=== PATIENT | male | born 1945 | race Caucasian/White ===

== ENCOUNTER 2019-03-21 09:09 | Inpatient (IN) ==
--- NOTE | 2019-03-13 14:34 | Anesthesiology Consultation ---
Date of Service March 13, 2019 Assessment & Plan Chart Review Chart Review: Patient NOT seen in Pre Admission Testing Consults Requested medical ASA ASA4 Proposed Anesthesia Anesthesia Type: General Anesthesia Line Insertion: Arterial line History Surgery Operation Date: 03/21/19 12:15 Proposed Procedures p Endobronchial Ultrasound - Parveen Schmidt MD, FACS s and Navigational Bronchoscopy with Biopsies - Parveen Schmidt MD, FACS Height/Weight Height: 5 ft 7 in Weight: 81.647 kg Allergies Allergy/AdvReac Type Severity Reaction Status Date / Time No Known Allergies Allergy Verified 03/13/19 10:08 Medications Home Medications Medication Instructions Recorded Confirmed Last Taken omeprazole 20 mg capsule,delayed 20 mg PO QAM #90 cap 11/29/18 03/13/19 Unknown release lovastatin 20 mg PO QAM 01/04/19 03/13/19 Unknown cholecalciferol (vitamin D3) 5,000 5,000 units PO DAILY 01/14/19 03/13/19 Unknown unit capsule multivitamin,so-fobt-shiefcnq 1 tab PO QAM 01/14/19 03/13/19 Unknown tablet inhalational spacing device #1 ea 01/28/19 03/11/19 Unknown aspirin 81 mg tablet,delayed 81 mg PO QAM 03/11/19 03/13/19 Unknown release lisinopril 20 mg tablet 20 mg PO QAM 03/11/19 03/13/19 Unknown metoprolol succinate ER 100 mg 100 mg PO QAM tab 03/11/19 03/13/19 Unknown tablet,extended release 24 hr albuterol sulfate [Ventolin HFA] 2 puff INHALATION QID PRN 03/13/19 03/13/19 Unknown tiotropium bromide [Spiriva with 1 cap INHALATION DAILY 03/13/19 03/13/19 Unknown HandiHaler] Past Medical History Medical History Chronic obstructive pulmonary disease Colon polyp Compression fracture of T11 vertebra fall January 2019. GERD (gastroesophageal reflux disease) Hyperlipidemia Osteoarthritis Pneumonia hx Cancer of the skin, basal cell Hypertension Metastatic cancer to lung Exercise / Class Metabolic Activity III < 4 Walking/Shop/Light housework Past Family History Family History Father Myocardial infarction Heart disease Brother Heart disease Other Cancer Past Surgical History Surgical History History of bronchoscopy History of colonoscopy History of esophagogastroduodenoscopy (EGD) History of surgical removal of skin lesion with skin graft History of appendectomy History of hemicolectomy right History of lung surgery thorascopic right lobectomy (middle area) History of tonsillectomy Past Anesthesia History No Hx of Anesthesia Complications and No Family Hx of Anesthesia Complications History of PONV No Hx of PONV and No Hx of Motion Sickness Social History Smoking Status: Former smoker tobacco type: cigarettes Smoking cigarettes per day: 1 ppd x 40 years Do You Dip or Chew Tobacco: No Smoking End Date: 1998 Hx Alcohol Use: Yes Alcohol type: wine and hard liquor alcohol intake frequency: 0-2 drinks per day Hx Substance Use: No substance use type: does not use Testing Laboratory Results WBC: 9.55 Hc.4 Hct: 48.3 PLATELETS: 262 SODIUM: 140 POTASSIUM: 4.1 CHLORIDE: 105 CO2: 29 BUN: 11 CREATININE: 1.01 GLUCOSE: 99 PT: 10.5 PTT: 29.2 INR: 1.0 UA: TYPE AND SCREEN: Electrocardiogram Date: 01/04/19 Findings: + RBBB and + pertinent finding (SR w/ 1st degree AV block;RBBB) Other Testing Chest CT scan(02/24/2019-mild cardiomegaly;densely calcified coronary arteries;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 to severe T11 compression Fx;masslike spiculated pulmonary opacities;cirrhotic liver morphology
[~2019-03-21 09:09] MED LIST: LR 15ML/HR IV SCH
[2019-03-21] MEDS ORDERED: ONDANSETRON INJ 2 MG/ML 2 ML VIAL ONE (09:44)
[2019-03-21] MEDS ORDERED: ROCURONIUM BROMIDE 10 MG/ML 5 ML VIAL ONE (09:44)
[2019-03-21] MEDS ORDERED: fentaNYL citrate 100 MCG/2 ML VIAL ONE (09:44)
[2019-03-21] MEDS ORDERED: LIDOCAINE 2% 2 ML VIAL/AMP(20MG/ML) INFIL ONE (09:44)
[2019-03-21] MEDS ORDERED: PROPOFOL IV EMULSION 10 MG/ML 20 ML VIAL IV ONE (09:44)
[2019-03-21] MEDS ORDERED: MIDAZOLAM HCL 1 MG/ML 2ML VIAL ONE (09:44)
[2019-03-21] MEDS ORDERED: ATROPINE SULFATE 0.1 MG/ML 10ML SYR IV PRN (10:14)
[2019-03-21] MEDS ORDERED: ePHEDrine sulfate 50 MG/ML AMP IV PRN (10:14)
[2019-03-21] MEDS ORDERED: fentaNYL citrate 100 MCG/2 ML VIAL IV PRN (10:14)
[2019-03-21] MEDS ORDERED: ONDANSETRON INJ 2 MG/ML 2 ML VIAL IV PRN ×2 (10:14→15:40)
[2019-03-21] MEDS ORDERED: hydrALAZINE HCL 20 MG/ML VIAL IV STA (10:14)
[2019-03-21] MEDS ORDERED: THROMBIN FOR SOLN 20000 UNIT KIT ONE (11:19)
--- NOTE | 2019-03-21 11:28 | History & Physical Bridge Note ---
Date of Service March 21, 2019 History & Physical Bridge Note I have examined the patient, reviewed the History & Physical and in the interval since the performance of the History & Physical I have noted the following changes of clinical significance: no changes noted
[2019-03-21] MEDS ORDERED: CLINDAMYCIN PHOS 300 MG/2 ML VIAL ONE (11:57)
[2019-03-21] MEDS ORDERED: CLINDAMYCIN 900 MG in DEXTROSE 5% 100 ML IV ONE (12:18)
[2019-03-21] MEDS ORDERED: ePHEDrine sulfate 50 MG/ML AMP ONE (12:30)
--- NOTE | 2019-03-21 12:54 | Post Operative Brief Note ---
PG Immediate Post Op with CF Date of Surgery March 21, 2019 Pre & Post Diagnosis Operation Date: 03/21/19 10:35 Pre-Op Diagnosis: Lung Nodule, Mediastinal Adenopathy Post-op Diagnosis: Same I identified the patient and participated in the time-out.: Yes Procedure Operation Date: 03/21/19 10:35 Actual Procedures p Endobronchial Ultrasound(Not Applicable) - Parveen Schmidt MD, FACS s and Navigational Bronchoscopy with Biopsies(Not Applicable) - Parveen Schmidt MD, FACS Surgeon Parveen Schmidt MD, FACS Clinical Registered Nurse Areli Campos RESIDENTIAL MANAGER Estimated Blood Loss 15 Findings Consistent with Post-Op Diagnosis Specimens Specimen Description: all specimens handled by respiratory and cytology
[2019-03-21] MEDS ORDERED: SUGAMMADEX SODIUM 200 MG/2 ML VIAL IV ONE (13:01)
--- NOTE | 2019-03-21 13:27 | XRay Report ---
XR chest 1V portable CLINICAL HISTORY: s/p EBUS COMPARISON STUDY: No previous studies for comparison. FINDINGS: No evidence for pneumothorax postprocedure. Unchanged hilar fullness bilaterally. Unchanged basilar atelectatic change. IMPRESSION: No evidence for pneumothorax. The above report was generated using voice recognition software. It may contain grammatical, syntax or spelling errors. Electronically signed by: Jossue Sainz M.D. 03/21/2019 1:25 PM
[2019-03-21] MEDS ORDERED: ALBUT/IPRATROP 3MG/0.5MG NEB 3 ML VIAL NEB STA (13:28)
--- NOTE | 2019-03-21 13:41 | Fluoroscopy Report ---
FL chest 1V frontal CLINICAL HISTORY: JAREK BRONCHbronchoscopy COMPARISON STUDY: None FLUOROSCOPY TIME: 2 minutes 16 seconds NUMBER OF FLUOROSCOPIC IMAGES: 2 FINDINGS: Image intensifier support for navigational bronchoscopy IMPRESSION: Image intensifier support for navigational bronchoscopy. The above report was generated using voice recognition software. It may contain grammatical, syntax or spelling errors. Electronically signed by: Jossue Sainz M.D. 03/21/2019 1:40 PM
--- NOTE | 2019-03-21 13:47 | Anesthesiology Progress Note ---
Date of Service March 21, 2019 Anesthesia Post Procedure Vital Signs Vital Signs: Temp Pulse Pulse Resp BP Pulse Ox 03/21/19 13:40 84 24 180/81 H 94 03/21/19 13:30 87 25 H 176/89 H 99 03/21/19 13:26 84 20 99 03/21/19 13:20 83 23 168/82 H 99 03/21/19 13:12 36.6 C 79 18 181/88 H 97 03/21/19 09:41 36.6 C 69 21 210/92 H 92 Transfer of Care Handoff Completed per policy Notes Mental Status: alert / awake / arousable and participated in evaluation Patient Amnestic to Procedure: Yes Nausea / Vomiting: adequately controlled Pain: adequately controlled Airway Patency, RR, SpO2: stable & adequate BP & HR: stable & adequate Hydration State: stable & adequate Anesthetic Complications: no major complications apparent and Pt Satisfied with anesthetic care
--- NOTE | 2019-03-21 14:01 | Operative Report (OR) ---
DATE OF OPERATION: 03/21/2019 PREOPERATIVE DIAGNOSES: Bilateral lower extremity masses with bronchial thickening of the bronchus intermedius and right mainstem bronchus. POSTOPERATIVE DIAGNOSES: Bilateral lower extremity masses with bronchial thickening of the bronchus intermedius and right mainstem bronchus. PROCEDURE: 1. Endobronchial ultrasound with biopsy. 2. Navigational bronchoscopy with biopsy. ANESTHESIA: General anesthesia with endotracheal intubation. SURGEON: Parveen Schmidt MD. REWINDER: Adilene Oneil, registered respiratory therapist. ANESTHESIA: General anesthesia, endotracheal intubation. INDICATION FOR PROCEDURE AND FINDINGS: Mr. Braden is a very interesting 74-year-old male who has a history of basal cell carcinoma which was resected from his forehead many years ago. He was then found to have metastases to his lungs were diagnosed via a wedge resection via right thoracotomy. This was many years ago. His original excision was done more than 15 years ago. The patient has been evaluated and there are agents to use for metastatic basal cell carcinoma; however, Dr. Flavio Lugo from medical oncology as a tissue diagnosis will be obtained before giving him his medication. He really has no signs or symptoms of pulmonary metastases. On 03/21/2019, the patient was brought to the operating room and underwent uncomplicated endobronchial ultrasound. His airway was quite thickened, especially on the right side. This was the right distal mainstem bronchus and the bronchus intermedius. It was hard and white. I did biopsy this with the needles and forceps. During the endobronchial ultrasound, I really saw very little in the way of lymphadenopathy. I did biopsy a left level 11 node but really it was small. I really saw nothing in the subcarinal area. On CT, he had a level 4 node anteriorly that appeared to be less than a centimeter, but I really did not visualize this well and I think some of it may have been due to the distal trachea. At any rate, I elected not to proceed further with this. I then did a navigational bronchoscopy and got into the left lower lobe mass as well as the right lower lobe mass. I was aggressive with the biopsies. We had very little in the way of bleeding. He tolerated it well. DESCRIPTION OF PROCEDURE: The patient brought to the operating room and laid in supine position. General anesthesia induced and endotracheal intubation was performed with single lumen tube. After appropriate antibiotics had been given and a timeout called, the ultrasound scope was inserted through the adapter into the endotracheal tube. Upon coming down, I closely inspected both level 11 areas, both level 10 areas, both level 4 areas, level 7 area and I really saw very little in the way of any adenopathy. I did biopsy a left level 11 a couple of times with a needle under ultrasound guidance, but we saw very little in the rapid onsite evaluation. I then switched over to the regular fiberoptic scope and going down, I closely inspected all the airways. His entire airway from the distal trachea on out was abnormal in appearance. It appeared to be inflamed and edematous. It was fairly friable with bleeding from the surface. I did do a biopsy of right mainstem bronchus mucosa with a forceps. I also biopsied the 2nd generation bronchoscopy ivan on the right. We did this with forceps with hard white tissue pulled. I also did needle biopsies through the bronchus intermedius and the right lower lobe bronchus which were markedly thickened on CT. We did see some atypical cells. During the navigational bronchoscopy, I first addressed the left lower lobe mass. We were able to see this fairly well and got out to it fairly easily. Our radial ultrasound probe showed that we were in an abnormal tissue. I did 3 brushes, needle biopsies and a forceps biopsy and atypical cells were noted. We really had very little in the way of bleeding from this. Attention was then turned towards the left lower lobe. I again positioned myself properly under the computer guidance and then also used an ultrasound that showed we were in markedly abnormal appearing portion of the lung. Brushes, fine needle aspiration and forceps were used to obtain tissue. We also did washings from both the left and the right side for cytology and culture. After we had finished, we really saw very little in the way of bleeding. I did irrigate out both airways copiously. I slowly withdrew the bronchoscope. He tolerated it very well. We will see him back in the office next week to go over the final pathology results. I attest to the content of the Intraoperative Record and any orders documented therein. Any exception s are noted below.
--- NOTE | 2019-03-21 14:43 | History and Physical Report ---
DATE OF ADMISSION: 03/21/2019 OBSERVATION ADMIT NOTE Mr. Braden underwent a navigational bronchoscopy and an endobronchial ultrasound today. I am not sure what his diagnosis is. He has a history of metastatic basal cell carcinoma to his lungs and underwent a resection, but this was many years ago. Dr. Flavio Lugo from medical oncology asked that a tissue diagnosis be made to see if indeed the masses that we see in his lung are basal cell carcinomas. This is important because it will determine his treatment if any. The patient underwent uncomplicated procedure today; however, after the surgery, he is struggling a bit. He is having a difficult time keeping his saturations up. He has very little support at home. I am going to keep him in the hospital overnight. He should be better by tomorrow when the anesthesia wears off, we can get his saturations up on room air. He did not require oxygen prior to coming in. We will admit him to med/surg and I will discharge him in the morning.
[2019-03-21] MEDS ORDERED: ALBUTEROL HFA 8 GM INHALER INH PRN (15:40)
[2019-03-21] MEDS ORDERED: [UNRECOGNIZED DRUG - OTHER] SCH (15:40)
[2019-03-21] MEDS: ALBUT/IPRATROP 3MG/0.5MG NEB 3 ML VIAL NEB SCH ×5 (16:46→23:30)
[2019-03-21] MEDS: D5W AND 1/2NSS 1,000 ML IV SCH (16:51)
--- NOTE | 2019-03-21 18:05 | Consultation ---
Date of Consultation March 21, 2019 Assessment & Plan (1) Benign essential hypertension: Continue home lisinopril, metoprolol will add hydralazine for SBP > 180, DBP > 110 prn (2) Hyperlipidemia: continue lovastatin (3) Chronic gastroesophageal reflux disease: Continue omeprazole (4) Chronic obstructive pulmonary disease: Continue Spiriva, ventolin Supervising Physician Co-Signing Physician Notes I supervised Latrice Oneil NP on this patient's care. I examined the patient today independently of her. I discussed the plan of care with her with the plan being as written in her note except for any following changes/exceptions: None. Feeling well overall. No symptoms of HTN. Reports his BP is always in the 170/80 range in the doctor's office, and that he does not check it at home at all. Encouraged him to follow up with his PCP and did briefly discuss the risks of HTN including [place] and CVA. History of Present Illness Mr. Braden is post navigational bronchoscopy and endobrachial ultrasound today. He is feeling well, no sob or chest pain. He does have a cough. At present he is sitting up, preparing to eat dinner, appears comfortable. He has been a bit hypertensive, he does mention a mild headache but is otherwise symptom free. 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 Family: denies any significant medical history Attending Physician: Parveen Schmidt MD, FACS Allergies Allergy/AdvReac Type Severity Reaction Status Date / Time No Known Allergies Allergy Verified 03/21/19 09:35 Home Medications Home Medications Medication Instructions Recorded Confirmed Type omeprazole 20 mg capsule,delayed 20 mg PO QAM #90 cap 11/29/18 03/21/19 History release lovastatin 20 mg PO QAM 01/04/19 03/21/19 History cholecalciferol (vitamin D3) 5,000 5,000 units PO DAILY 01/14/19 03/21/19 History unit capsule multivitamin,js-bedv-grfcaggm 1 tab PO QAM 01/14/19 03/21/19 History tablet inhalational spacing device #1 ea 01/28/19 03/17/19 Rx aspirin 81 mg tablet,delayed 81 mg PO QAM 03/11/19 03/21/19 History release lisinopril 20 mg tablet 20 mg PO QAM 03/11/19 03/21/19 History metoprolol succinate ER 100 mg 100 mg PO QAM tab 03/11/19 03/21/19 History tablet,extended release 24 hr albuterol sulfate [Ventolin HFA] 2 puff INHALATION QID PRN 03/13/19 03/21/19 History tiotropium bromide [Spiriva with 1 cap INHALATION DAILY 03/13/19 03/21/19 History HandiHaler] Patient History Medical History Chronic obstructive pulmonary disease Colon polyp Compression fracture of T11 vertebra fall January 2019. GERD (gastroesophageal reflux disease) Hyperlipidemia Osteoarthritis Pneumonia hx Cancer of the skin, basal cell Hypertension Metastatic cancer to lung Surgical History History of bronchoscopy History of colonoscopy History of esophagogastroduodenoscopy (EGD) History of surgical removal of skin lesion with skin graft History of appendectomy History of hemicolectomy right History of lung surgery thorascopic right lobectomy (middle area) History of tonsillectomy Family History Father Myocardial infarction Heart disease Brother Heart disease Other Cancer Social History Preferred Language: [place] Communication Ability: Effective Armed Guard Required: No Beliefs That Will Affect Care: None marital status: Current Living Situation: Significant Other Current Living Situation Comment: ex- current occupational status: retired Other Information That Helps Us Care for You: No Feels Safe at Home: Yes Safety Concerns: Feels Safe At This Time Smoking Status: Former smoker Tobacco Type: cigarettes ; Age Started Using Tobacco: 20 ; Age Quit Using Tobacco: 42 ; packs per day: 1 ; Cigarettes Per Day: 1 ppd x 40 years ; Do You Dip or Chew Tobacco: No ; Smoking End Date: 1998 ; Second Hand Exposure: Yes (hx) ; Tobacco Cessation Education Requested by Patient: No Hx Alcohol Use: Yes Alcohol type: wine and hard liquor Alcohol Intake Frequency: Daily Hx Substance Use: No Childhood Exposure to Second-Hand Smoke: No Dental Care, Regularly: No Physical Activity Frequency: Daily Seatbelt Use: sometimes Sunscreen Use: Yes Review of Systems Constitutional: no fever, no chills and no sweats Respiratory: + cough; no dyspnea Cardiovascular: no chest pain and no dyspnea Gastrointestinal: no abdominal pain, no nausea and no vomiting Genitourinary: no dysuria Musculoskeletal: no back pain, no neck pain and no myalgia Integumentary: no rash Physical Exam Physical Exam: General: no distress Eyes: normal inspection, PERLL Respiratory: chest non tender, course breath sounds bilaterally, no respiratory distress, no accessory muscle use Cardiac: regular rate and rhythm, no rub or gallop, no murmur, no edema, no jvd GI/: active bowel sounds, no abd pain or tenderness, soft, non distended Extremities: normal range of motion, normal strength, non tender Neuro: alert, moves all extremities Psych: oriented x 3, normal mood and affect Skin: normal color, dry Results & Data Vital Signs (Past 12 Hours) Vital Signs Temp Pulse Pulse Resp BP Pulse Ox 03/21/19 17:35 36.5 C 78 16 175/93 H 96 03/21/19 16:29 36.4 C L 81 16 180/90 H 94 03/21/19 16:04 36.5 C 80 16 173/82 H 96 03/21/19 16:03 36.5 C 80 16 173/82 H 95 03/21/19 15:30 36.6 C 83 20 181/83 H 94 03/21/19 15:00 86 22 170/96 H 96 03/21/19 14:30 86 22 168/83 H 94 03/21/19 14:00 36.6 C 84 24 169/80 H 94 03/21/19 13:50 36.5 C 83 24 170/79 H 93 03/21/19 13:40 84 24 180/81 H 94 03/21/19 13:30 87 25 H 176/89 H 99 03/21/19 13:26 84 20 99 03/21/19 13:20 83 23 168/82 H 99 03/21/19 13:12 36.6 C 79 18 181/88 H 97 03/21/19 09:41 36.6 C 69 21 210/92 H 92 PG Care Time/CCT Total # of Minutes Spent Total Time Spent with Patient: Total time spent is greater than 50% in coordination of care (as documented) at patient's floor/unit and/or counseling patient: (1) Chronic obstructive pulmonary disease COPD type: chronic bronchitis Chronic bronchitis type: unspecified Qualified Code(s): J42 - Unspecified chronic bronchitis
[2019-03-21] MEDS ORDERED: hydrALAZINE HCL 20 MG/ML VIAL IV PRN (18:08)
[2019-03-21] MEDS: guaiFENesin 600 MG TABCR PO SCH (21:36)
[2019-03-21] MEDS: DOCUSATE SODIUM 100 MG CAP PO SCH (21:36)
[2019-03-22] MEDS: ALBUT/IPRATROP 3MG/0.5MG NEB 3 ML VIAL NEB SCH ×6 (03:05→23:20)
[2019-03-22 06:03] LABS: Hemoglobin 13.9 g/dL (14.0-18.0); Mean Corpuscular Hemoglobin 33.1 pg (25-34); Mean Corpuscular Hgb Conc 31.6 g/dL (32-36); Mean Corpuscular Volume 104.8 fL (80-100); Mean Platelet Volume 10.8 fL (7.4-10.4); Platelet Count 232 K/uL (130-400); RDW Coefficient of Variation 13.5 % (11.5-14.5); RDW Standard Deviation 51.7 fL (36.4-46.3); White Blood Count 13.15 K/uL (4.8-10.8)
[2019-03-22 06:15] LABS: INR 1.1 (0.9-1.1); Prothrombin Time 10.9 Seconds (9.0-12.0)
[2019-03-22 06:40] LABS: Creatinine Clr Calc Pharmacy 67.5 ml/min; Est GFR (African American) 89.3
--- NOTE | 2019-03-22 06:54 | XRay Report ---
XR chest 1V portable CLINICAL HISTORY: hypoxia dyspnea COMPARISON STUDY: 03/21/2019 FINDINGS: Unchanged exam. Moderate stable cardiomegaly. Chronic prominence of the mid mediastinum. Pa renchymal findings of the right as well as left chest are stable. IMPRESSION: Stable exam with no change from the prior study. The above report was generated using voice recognition software. It may contain grammatical, syntax or spelling errors. Electronically signed by: Jossue Sainz M.D. 03/22/2019 6:53 AM
[2019-03-22] MEDS: ASPIRIN 81 MG ECTAB PO SCH (08:37)
[2019-03-22] MEDS: PANTOprazole 40 MG TAB PO SCH (08:37)
[2019-03-22] MEDS: guaiFENesin 600 MG TABCR PO SCH ×2 (08:37→21:12)
[2019-03-22] MEDS: lisinopril 20 MG TAB PO SCH (08:37)
[2019-03-22] MEDS: CEROVITE ADV FORMULA TAB PO SCH (08:37)
[2019-03-22] MEDS: DOCUSATE SODIUM 100 MG CAP PO SCH ×2 (08:37→21:12)
[2019-03-22] MEDS: CHOLECALCIFEROL 1,000 UNITS 25 MCG TAB PO SCH (08:37)
[2019-03-22] MEDS: METOPROLOL SUCC 50MG EXT REL TAB PO SCH (08:37)
[2019-03-22] MEDS: LOVASTATIN 20 MG TAB PO SCH (08:37)
[2019-03-22] MEDS: TIOTROPIUM BROMIDE 5 PUFF/90 MCG INH INH SCH (08:38)
[2019-03-22] MEDS: ENOXAPARIN INJ 40 MG/0.4 ML SYR SQ SCH (08:42)
[2019-03-22] MEDS: D5W AND 1/2NSS 1,000 ML IV SCH (08:43)
--- NOTE | 2019-03-22 10:25 | Progress Notes ---
DATE: 03/22/2019 Mr. Braden is seen today. He looks much better. His cough is resolved. Blood pressure is better. His pulse rate is still 100. He remains hypoxic. I took him off of oxygen. His saturations dropped. He is on 3 liters with 96% saturation now. He sounds better, although he still has marked rhonchi and decreased breath sounds on the right. I reviewed this case with Dr. Raj Castañeda from pulmonary. I have asked Dr. Castañeda to evaluate this patient. 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 We will also stop his IV fluids and get him up walking more. I would like to wean his O2. If his O2 is not weaned by tomorrow, we will get a 2-step and have him discharged on oxygen. I am curious as to the results of our biopsies. DAVID
--- NOTE | 2019-03-22 10:53 | Pulmonary Consultation ---
Date of Consultation March 22, 2019 Assessment & Plan (1) Multiple pulmonary nodules determined by computed tomography of lung: Impression: 74-year-old male with remote history of tobacco abuse and history of basal cell carcinoma now with multiple pulmonary nodules and markedly elevated right hemidiaphragm. He underwent bronchoscopy with endobronchial ultrasound and transbronchial needle aspiration and navigation bronchoscopy for the pulmonary nodules and was admitted to the hospital due to hypoxemia postoperatively. Recommendations: 1. Mixed obstructive and restrictive lung disease: PFTs from 2018 demonstrated a mixed pattern. For now would continue inhalers in the form of Spiriva and Symbicort but the patient can transition back to his home medications when discharged from the hospital. No indication for steroids currently. 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 Unclear what evaluation has been conducted in the past for this. Assessment with fluoroscopy is recommended. This does not need to be done as an inpatient typically unilateral diaphragmatic paralysis is well- tolerated and does not require any additional intervention although an overnight sleep study may be appropriate as the patient may require supplemental oxygen and/or consideration of noninvasive positive pressure ventilation. 2. Abnormal CT scan: The patient does demonstrate marked airway thickening with an area of focal narrowing of the bronchus intermedius.. Assessment of outpatient exhaled nitric oxide may be beneficial. 3. Multiple pulmonary nodules: Await pathology from the patient's recent bronchoscopy. 4. Hypoxemic respiratory failure: The patient may require supplemental oxygen for discharge. If so he can follow-up in the pulmonary clinic after discharge to assess whether this needs to be continued in the long-term. The patient can likely be dismissed from the hospital when cleared by thoracic surgery. He should follow-up in the pulmonary clinic. (2) Hypoxemia: (3) Abnormal CT scan of lung: (4) Chronic obstructive pulmonary disease: COPD type: chronic bronchitis Chronic bronchitis type: unspecified Qualified Code(s): J42 - Unspecified chronic bronchitis History of Present Illness Attending Physician: Parveen Schmidt MD, FACS History of Present Illness Asked by Dr. Espinal to evaluate this patient with hypoxemia post bronchoscopy. History is obtained from discussion with the patient at the bedside as well as with Dr. Genevieve Servin and reviewed the electronic medical record. The patient is a 74-year-old male with a history of a basal cell carcinoma of the scalp diagnosed in 2000 which was resected. He underwent right upper lobe wedge resection about 10 years ago in [place] which confirmed metastatic basal cell carcinoma. Apparently there was some discussion about initiation of chemotherapy at that point time however they observed to continue to follow the patient. He established with oncology here and additional tissue was requested to confirm metastatic disease. The patient underwent navigational bronchoscopy as well as endobronchial ultrasound yesterday. He was hypoxemic and due to his poor social situation at home was admitted to the hospital overnight. I was consulted to evaluate him from a pulmonary standpoint. The patient does have about a [id number] history of tobacco abuse but quit smoking over 20 years ago. 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 He denies any other occupational or environmental exposures. He reports that he gets short of breath whenever he walks up a flight of stairs or if he exerts himself to any significant degree. He does cough and expectorate phlegm on a regular basis which she describes as whitish to greenish in nature. He is never been on inhalers previously. He does not recall having had pulmonary function testing performed. He is unsure whether or not he has had chest x-rays previously although given his thoracic history I am sure he has had prior imaging. He is never been told he had a paretic hemidiaphragm. He does not report shortness of breath in the supine position. He is not frequently on antibiotics. He has been followed in the pulmonary clinic by DEVEN Omalley. His remaining medical history and review of systems was reviewed in the electronic medical record. I have no additions or deletions. Allergies Allergy/AdvReac Type Severity Reaction Status Date / Time No Known Allergies Allergy Verified 03/21/19 09:35 Home Medications Home Medications Medication Instructions Recorded Confirmed Type omeprazole 20 mg capsule,delayed 20 mg PO QAM #90 cap 11/29/18 03/21/19 History release lovastatin 20 mg PO QAM 01/04/19 03/21/19 History cholecalciferol (vitamin D3) 5,000 5,000 units PO DAILY 01/14/19 03/21/19 History unit capsule multivitamin,hi-mjsm-[id number] 1 tab PO QAM 01/14/19 03/21/19 History tablet inhalational spacing device #1 ea 01/28/19 03/17/19 Rx aspirin 81 mg tablet,delayed 81 mg PO QAM 03/11/19 03/21/19 History release lisinopril 20 mg tablet 20 mg PO QAM 03/11/19 03/21/19 History metoprolol succinate ER 100 mg 100 mg PO QAM tab 03/11/19 03/21/19 History tablet,extended release 24 hr albuterol sulfate [Ventolin HFA] 2 puff INHALATION QID PRN 03/13/19 03/21/19 History tiotropium bromide [Spiriva with 1 cap INHALATION DAILY 03/13/19 03/21/19 History HandiHaler] Patient History Medical History Chronic obstructive pulmonary disease Colon polyp Compression fracture of T11 vertebra fall January 2019. GERD (gastroesophageal reflux disease) Hyperlipidemia Osteoarthritis Pneumonia hx Cancer of the skin, basal cell Hypertension Metastatic cancer to lung Surgical History History of bronchoscopy History of colonoscopy History of esophagogastroduodenoscopy (EGD) History of surgical removal of skin lesion with skin graft History of appendectomy History of hemicolectomy right History of lung surgery thorascopic right lobectomy (middle area) History of tonsillectomy Family History Father Myocardial infarction Heart disease Brother Heart disease Other Cancer Social History Preferred Language: Estonian Communication Ability: Effective Coat Cutter Required: No Beliefs That Will Affect Care: None marital status: Current Living Situation: Significant Other Current Living Situation Comment: ex- current occupational status: retired Other Information That Helps Us Care for You: No Feels Safe at Home: Yes Safety Concerns: Feels Safe At This Time Smoking Status: Former smoker Tobacco Type: cigarettes ; Age Started Using Tobacco: 20 ; Age Quit Using Tobacco: 42 ; packs per day: 1 ; Cigarettes Per Day: 1 ppd x 40 years ; Do You Dip or Chew Tobacco: No ; Smoking End Date: 1998 ; Second Hand Exposure: Yes (hx) ; Tobacco Cessation Education Requested by Patient: No Hx Alcohol Use: Yes Alcohol type: wine and hard liquor Alcohol Intake Frequency: Daily Hx Substance Use: No Childhood Exposure to Second-Hand Smoke: No Dental Care, Regularly: No Physical Activity Frequency: Daily Seatbelt Use: sometimes Sunscreen Use: Yes Review of Systems Review of Systems: All systems reviewed & are unremarkable except as noted in HPI & below Physical Exam Constitutional: WD/WN, vitals as above Eyes: PERRL, conjunctivae normal, anicteric sclerae Neck: trachea midline, no thyromegaly Respiratory: Coarse rhonchi bilaterally. Occasional mid-to-late and expiratory wheezes Cardiovascular: RRR, no murmur, no edema Gastrointestinal (Abdomen): normal bowel sounds, soft, nontender, no hepatosplenomegaly Skin: no rashes, warm and dry Neurologic: Nonfocal Psychiatric: A+Ox3, euthymic affect Results & Data Vital Signs (Past 12 Hours) Vital Signs Temp Pulse Pulse Resp BP Pulse Ox 03/22/19 08:35 100 H 145/71 H 03/22/19 07:30 92 H 20 96 03/22/19 07:12 37 C 95 H 16 157/77 H 91 03/22/19 03:56 37.2 C 104 H 16 148/73 H 94 03/22/19 03:05 96 H 19 93 03/21/19 23:30 95 H 18 91 03/21/19 23:20 37.1 C 93 H 16 168/82 H 92 Laboratory Results 03/22/19 05:51 03/22/19 05:51 Diagnostic Findings Chest x-ray and CT scan independently reviewed. Chest x-ray from 03/22/2019 was reviewed. There are atelectatic/fibrotic changes noted in the base of the right lung and in the mid zone of the left lung. Markedly elevated right hemidiaphragm is again noted. CT of the chest from 02/24/2019: There is diffuse bronchial wall thickening noted. Calcifications are noted in the left pleura with some calcified mediastinal and hilar nodes. There is a nodule noted in the lateral aspect of the left midlung and an area of consolidation present within the superior se gment of the right lower lobe. The bronchus intermedius does appear to be narrowed significantly. There does appear to be small shotty adenopathy present within the bilateral hilum and there is some of these have punctate areas of calcification. There are areas of subtle increased interstitial markings, most consistent within the periphery of the lung zones. Some basilar bronchiectasis also noted. Compared to prior CT scan performed August 2018, these changes Pulmonary function test performed May 2018 showed an FEV1 of 1.13 L or 38% predicted with an FVC of 1.76 L or 46% predicted. The ratio is reduced at 64. Bronchodilators were administered with no change in airflows. Lung volumes confirm restriction with a total lung capacity 57% predicted, FRC of 80% predicted, and RV of 86% predicted. Diffusion capacity is reduced at 43% predicted. Clinical notes from the patient's prior pulmonary evaluation were reviewed they indicate the patient is supposed to be taking Spiriva and Bevespi with as needed Ventolin which have been markedly beneficial for the patient. PG Care Time/CCT Total # of Minutes Spent Total Time Spent with Patient: Total time spent is greater than 50% in c oordination of care (as documented) at patient's floor/unit and/or counseling patient:
--- NOTE | 2019-03-22 12:52 | Hospitalist Progress Note ---
Date of Service March 22, 2019 Assessment & Plan (1) Benign essential hypertension: Continue home lisinopril, metoprolol will add hydralazine for SBP > 180, DBP > 110 prn Blood pressures have improved today, no hydralazine needed since last night (2) Hyperlipidemia: continue lovastatin (3) Chronic gastroesophageal reflux disease: Continue omeprazole (4) Chronic obstructive pulmonary disease: Continue Spiriva, Ventolin Pulmonology is consulted, see their note Will order 2 step Thank you for involving us in the care of this patient, medicine will sign off at this time. Please let us know if you have any questions. Subjective Mr. Braden denies any pain or discomfort, feeling well today. ROS Constitutional: no chills, aches, sweats or fever Respiratory: no sob,cough, sputum, or wheezing Cardiac: no chest pain, palpitations, edema, orthopnea or lightheadedness GI: no abdominal pain, nausea, vomiting, diarrhea or constipation : no dysuria or hesitancy Extremities: no joint pain or weakness Skin: no rash All other systems reviewed and negative Physical Exam Physical Exam: General: no distress Eyes: normal inspection, PERLL Respiratory: chest non tender, rhonchi bilateral lungs, no respiratory distress, no accessory muscle use Cardiac: regular rate and rhythm, no rub or gallop, no murmur, no edema, no jvd GI/: active bowel sounds, no abd pain or tenderness, soft, non distended Extremities: normal range of motion, normal strength, non tender Neuro/Psych: alert and oriented x 3, normal mood and affect Skin: normal color, dry Results & Data Vital Signs (Past 12 Hours) Vital Signs Temp Pulse Pulse Resp BP Pulse Ox 03/22/19 11:17 81 18 94 03/22/19 08:35 100 H 145/71 H 03/22/19 07:30 92 H 20 96 03/22/19 07:12 37 C 95 H 16 157/77 H 91 03/22/19 03:56 37.2 C 104 H 16 148/73 H 94 03/22/19 03:05 96 H 19 93 PG Care Time/CCT Total # of Minutes Spent Total Time Spent with Patient: Total time spent is greater than 50% in coordination of care (as documented) at patient's floor/unit and/or counseling patient: (1) Chronic obstructive pulmonary disease COPD type: chronic bronchitis Chronic bronchitis type: unspecified Qualified Code(s): J42 - Unspecified chronic bronchitis
[2019-03-22] MEDS: FLUTICASONE/SALMETEROL 250/50 (ADVAIR) 14 PUFF/1 INHALER INH SCH ×2 (13:58→21:11)
[2019-03-22] MEDS: ACETAMINOPHEN 325 MG TAB PO PRN (21:10)
[2019-03-23] MEDS ORDERED: ACETYLCYSTEINE 20% INHAL SOLN 30ML INH ONE (00:31)
[2019-03-23 00:49] LABS: HCO3 ABG 31 mmol/L (19-24); PCO2 ABG 59 mmHg (35-46); PO2 ABG 86 mm/Hg (80-95); pH ABG 7.33 (7.35-7.45)
[2019-03-23 00:54] LABS: Allen Test Pos (Pos)
[2019-03-23] MEDS: ALBUT/IPRATROP 3MG/0.5MG NEB 3 ML VIAL NEB SCH ×6 (01:45→23:44)
[2019-03-23] MEDS: ACETAMINOPHEN 325 MG TAB PO PRN ×3 (02:16→20:35)
--- NOTE | 2019-03-23 07:39 | XRay Report ---
XR chest 1V portable HISTORY: Shortness of breath. COMPARISON: Chest 03/22/2019. FINDINGS: The heart remains mildly enlarged. Stable elevation of the right hemidiaphragm and small bi lateral pleural effusions. Bibasilar linear densities favor subsegmental atelectasis. This also linea r scarlike density within the left midlung zone. No pneumothorax. IMPRESSION: No change compared to the prior study. Small bilateral pleural effusions and atelectasis/scarring per sists. Electronically signed by: Solitario Christopher M.D. 03/23/2019 7:38 AM
[2019-03-23] MEDS: ENOXAPARIN INJ 40 MG/0.4 ML SYR SQ SCH (07:57)
[2019-03-23] MEDS: ASPIRIN 81 MG ECTAB PO SCH (07:57)
[2019-03-23] MEDS: TIOTROPIUM BROMIDE 5 PUFF/90 MCG INH INH SCH (07:58)
[2019-03-23] MEDS: lisinopril 20 MG TAB PO SCH (07:58)
[2019-03-23] MEDS: CHOLECALCIFEROL 1,000 UNITS 25 MCG TAB PO SCH (07:58)
[2019-03-23] MEDS: LOVASTATIN 20 MG TAB PO SCH (07:58)
[2019-03-23] MEDS: FLUTICASONE/SALMETEROL 250/50 (ADVAIR) 14 PUFF/1 INHALER INH SCH ×2 (07:58→20:34)
[2019-03-23] MEDS: guaiFENesin 600 MG TABCR PO SCH ×2 (07:59→20:36)
[2019-03-23] MEDS: METOPROLOL SUCC 50MG EXT REL TAB PO SCH (07:59)
[2019-03-23] MEDS: PANTOprazole 40 MG TAB PO SCH (07:59)
[2019-03-23] MEDS: CEROVITE ADV FORMULA TAB PO SCH (07:59)
[2019-03-23] MEDS: DOCUSATE SODIUM 100 MG CAP PO SCH ×2 (07:59→20:36)
--- NOTE | 2019-03-23 08:51 | XRay Report ---
XR chest 1V portable HISTORY: hypoxia COMPARISON: Chest 03/23/2019. FINDINGS: Stable elevation right hemidiaphragm. The heart remains mildly enlarged. No pneumothorax. O ld, healed left-sided rib fractures. Slight improved aeration within the lungs. Chronic elevation rig ht hemidiaphragm and small bilateral pleural effusions persist. IMPRESSION: 1. No change in the small bilateral pleural effusions. 2. Slight improved aeration within the lungs. Electronically signed by: Solitario Christopher M.D. 03/23/2019 8:49 AM
--- NOTE | 2019-03-23 11:56 | Progress Notes ---
DATE: 03/23/2019 Mr. Braden was evaluated today. He looks similar to yesterday. He is on 2 liters with good saturations; however, last night he developed a hypoxic episode where he was quite short of breath and his saturations dropped down into the low 80s. We could not get him up with supplemental oxygen. He was transferred to the telemetry unit. Vital signs have been stable except his blood pressure is a bit high. He is better today. X-ray does not show much change, although I think he may have a bit more volume loss on the right. On exam, he is wheezing a bit today which he was not yesterday and has a few more rhonchi. ASSESSMENT AND PLAN: Acute hypoxic episode. He is not producing purulent sputum now. He is not producing any bloody sputum. He states his cough is "better." The episode he had last night was a bit unnerving to him as he has never had this at home before. I discussed this with Dr. Castañeda. We will keep him as an admission until this get straightened out. DAVID
--- NOTE | 2019-03-23 18:02 | Pulmonology Progress Note ---
Date of Service March 23, 2019 Assessment & Plan (1) Multiple pulmonary nodules determined by computed tomography of lung: Impression: 74-year-old male with remote history of tobacco abuse and history of basal cell carcinoma now with multiple pulmonary nodules and markedly elevated right hemidiaphragm. He underwent bronchoscopy with endobronchial ultrasound and transbronchial needle aspiration and navigation bronchoscopy for the pulmonary nodules and was admitted to the hospital due to hypoxemia postoperatively. Recommendations: 1. Mixed obstructive and restrictive lung disease: PFTs from 2018 demonstrated a mixed pattern. For now would continue inhalers in the form of Spiriva and Symbicort but the patient can transition back to his home medications when discharged from the hospital. He is more wheezy currently may have been slightly bronchospastic last night. We will institute Solu-Medrol and follow. 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 Unclear what evaluation has been conducted in the past for this. Assessment with fluoroscopy is recommended. This does not need to be done as an inpatient typically unilateral diaphragmatic paralysis is well-tolerated and does not require any additional intervention although an overnight sleep study may be appropriate as the patient may require supplemental oxygen and/or consideration of noninvasive positive pressure ventilation. 2. Abnormal CT scan: The patient does demonstrate marked airway thickening with an area of focal narrowing of the bronchus intermedius.. Assessment of outpatient exhaled nitric oxide may be beneficial. 3. Multiple pulmonary nodules: Await pathology from the patient's recent bronchoscopy. 4. Hypoxemic respiratory failure: The patient may require supplemental oxygen for discharge. If so he can follow-up in the pulmonary clinic after discharge to assess whether this needs to be continued in the long-term. According to his prior clinical notes, he did qualify for supplemental oxygen and this was rec ommended however the patient declined to use it. We will continue to follow with you. (2) Hypoxemia: (3) Abnormal CT scan of lung: (4) Chronic obstructive pulmonary disease: COPD type: chronic bronchitis Chronic bronchitis type: unspecified Qualified Code(s): J42 - Unspecified chronic bronchitis Review of Systems Review of Systems: unchanged from prior Physical Exam Constitutional: WD/WN, vitals as above Eyes: PERRL, conjunctivae normal, anicteric sclerae Neck: trachea midline, no thyromegaly Respiratory: Bronchial breath sounds with some mid-to-late and expiratory wheezing Cardiovascular: RRR, no murmur, no edema Gastrointestinal (Abdomen): normal bowel sounds, soft, nontender, no hepatosplenomegaly Skin: no rashes, warm and dry Psychiatric: A+Ox3, euthymic affect Results & Data Vital Signs (Past 12 Hours) Vital Signs Temp Pulse Resp BP BP Pulse Ox 03/23/19 16:00 36.8 C 87 20 169/82 H 97 03/23/19 15:25 80 20 95 03/23/19 11:26 36.5 C 86 22 165/71 H 93 03/23/19 10:51 79 18 94 03/23/19 10:36 93 03/23/19 10:35 87 L 03/23/19 10:19 89 L 03/23/19 10:01 93 03/23/19 07:19 36.6 C 92 H 22 182/73 H 95 03/23/19 07:03 86 20 99 Laboratory Results 03/22/19 05:51 03/22/19 05:51 Diagnostic Findings Chest x-ray from today reviewed. There is persistent elevation of the right hemidiaphragm. Mild coarsening of the bronchovascular markings. No acute airspace opacity identified. PG Care Time/CCT Total # of Minutes Spent Total Time Spent with Patient: Total time spent is greater than 50% in coordination of care (as documented) at patient's floor/unit and/or counseling patient:
[2019-03-23] MEDS: methylPREDNISolone 60 MG in SYRINGE 0 ML IV SCH (18:33)
[2019-03-24] MEDS: methylPREDNISolone 60 MG in SYRINGE 0 ML IV SCH ×2 (03:01→09:16)
[2019-03-24] MEDS: ALBUT/IPRATROP 3MG/0.5MG NEB 3 ML VIAL NEB SCH ×6 (03:34→23:17)
[2019-03-24 06:18] LABS: Hematocrit (blood only) 45.2 % (42-52); Hemoglobin 14.8 g/dL (14.0-18.0); Mean Corpuscular Hemoglobin 33.9 pg (25-34); Mean Corpuscular Hgb Conc 32.7 g/dL (32-36); Mean Corpuscular Volume 103.4 fL (80-100); Mean Platelet Volume 10.8 fL (7.4-10.4); Platelet Count 237 K/uL (130-400); RDW Coefficient of Variation 12.8 % (11.5-14.5); RDW Standard Deviation 48.8 fL (36.4-46.3); Red Blood Count 4.37 M/uL (4.7-6.1); White Blood Count 12.77 K/uL (4.8-10.8)
[2019-03-24 06:52] LABS: Creatinine Clr Calc Pharmacy 70.2 ml/min; Est GFR (Non-African American) 81.1
--- NOTE | 2019-03-24 09:04 | Pulmonology Progress Note ---
Date of Service March 24, 2019 Assessment & Plan (1) Multiple pulmonary nodules determined by computed tomography of lung: Multiple pulmonary nodules and markedly elevated right hemidiaphragm S/P bronchoscopy with endobronchial ultrasound and transbronchial needle aspiration and navigation bronchoscopy for the pulmonary nodules with Dr. Schmidt Hypoxic postoperatively and continues with hypoxia requiring greater than 6 L/min with minimal ambulation Continue intravenous steroids and encourage ambulation Encourage incentive spirometry Unable to meet oxygen requirements with supplemental O2 to discharge home today We will continue to follow and hopefully get the patient home in the next day or 2 with supplemental O2 at less than 6 L/min Will need outpatient follow-up with Dr. Schmidt status post procedure We will also need outpatient follow-up with pulmonary for COPD Recommendations: 1. Mixed obstructive and restrictive lung disease: PFTs from 2018 demonstrated a mixed pattern. For now would continue inhalers in the form of Spiriva and Symbicort but the patient can transition back to his home medications when discharged from the hospital. He is more wheezy currently may have been slightly bronchospastic last night. We will institute Solu-Medrol and follow. 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 Unclear what evaluation has been conducted in the past for this. Assessment with fluoroscopy is recommended. This does not need to be done as an inpatient typically unilateral diaphragmatic paralysis is well-tolerated and does not require any additional intervention although an overnight sleep study may be appropriate as the patient may require supplemental oxygen and/or consideration of noninvasive positive pressure ventilation. 2. Abnormal CT scan: The patient does demonstrate marked airway thickening with an area of focal narrowing of the bronchus intermedius.. Assessment of outpatient exhaled nitric oxide may be beneficial. 3. Multiple pulmonary nodules: Await pathology from the patient's recent bronchoscopy. 4. Hypoxemic respiratory failure: The patient may require supplemental oxygen for discharge. If so he can follow-up in the pulmonary clinic after discharge to assess whether this needs to be continued in the long-term. According to his prior clinical notes, he did qualify for supplemental oxygen and this was recommended however the patient declined to use it. We will continue to follow with you. (2) Hypoxemia: Patient requires supplemental oxygen in the past but refused 6-minute walk test today revealed requirement for 2 L at rest and greater than 6 L/min via nasal cannula with minimal ambulation Will encourage incentive spirometry Continue IV steroids today Ambulate in the hallway Will need outpatient follow-up Follow expectantly (3) Abnormal CT scan of lung: Multiple lung nodules POD #3 endoscopic bronchoscopy with navigational bronchoscopy Await pathology results (4) Chronic obstructive pulmonary disease: [id number] of tobacco abuse * With smoking over 20 years ago Not on any inhalers or other bronchodilators at home No history of pulmonary function testing We will need to continue to follow-up with pulmonary clinic with Tara Rhodes PA-C Outpatient work-up. PFTs from 2018 demonstrated mixed pattern Outpatient medications appear to include albuterol HFA with spacer and Spiriva HandiHaler * Would discharge on these medications as well as a steroid taper and follow-up in the outpatient office Please refer to Dr. Holliday's addendum for further recommendations. COPD type: chronic bronchitis Chronic bronchitis type: unspecified Qualified Code(s): J42 - Unspecified chronic bronchitis Supervising Physician Co-Signing Physician Notes Patient seen and examined with Antonio Stearns PA-C. I agree with his assessment and plan aside for any additions/exceptions noted: Patient has very severe obstructive physiology on his PFTs (05/30/18). He had an FEV1 of 38% predicted. He also has evidence of severe restrictive physiology with a TLC of 57% predicted. Interestingly, he does significant bilateral pleural plaques on his CT chest along with pleural based lesions and nodular parenchymal lesions. The pleural plaques and his right hemidiaphragm elevation are likely contributing to the obstructive physiology seen. He apparently does have a history of asbestosis exposure per DEVEN Rhodes's note. Apparently, he has a history of metastatic basal cell carcinoma to the lung which seems quite unu sual. We are still awaiting the pathology from the bronchoscopy. It seems that the patient has required oxygen in the past but refused to go on supplemental oxygen. It is not surprising to me that he currently requires supplemental oxygen. He seems to have somewhat of a poor insight into his lung disease. He also has evidence of hypercapnic respiratory failure that is likely somewhat chronic in nature. Recommend obtaining an arterial blood gas tomorrow morning. If he continues to demonstrate hypercapnia, I would recommend a noninvasive ventilator at home. This would also likely help with his underlying restrictive physiology from the aforementioned pleural plaques and right hemidiaphragm elevation. Lastly, I will switch him to p.o. prednisone for tomorrow. He can complete a course of 5 days of steroids total for COPD a exacerbation. Recommend adding an inhaled corticosteroid/long-acting beta agonist inhaler on discharge in addition to his Spiriva.. Subjective Attending: Dr. Holliday Patient seen and examined at bedside. He was in bedside chair. Patient was hypoxic to 84% SaO2 on room air. Placed on supplemental O2 at 2 L and imm ediately went to 90%. 6-minute walk test being initiated. Patient denies any chest pain or tightness. He does have shortness of breath and reports some intermittent wheezing. He has no fever or chills. He has no hemoptysis. He has limited cough with no sputum production. The patient has no other acute complaints at this time. Review of Systems Review of Systems: All systems reviewed & are unremarkable except as noted in HPI & below Physical Exam Physical Exam: GENERAL : No acute distress. Patient does have trouble with full sentences on room air EYES: No icterus, gaze conjugate NOSE: No evidence of epistaxis MOUTH: No lesions or candidiasis NECK: Supple LUNGS: Diminished breath sounds and very distant globally. No breath sounds at right base suspect to be secondary to elevated hemidiaphragm. Scant bronchospasm at expiratory phase on the right anterior lung zone. No appreciation of significant rales or rhonchi. HEART: Regular, tachycardic at 110-115 ABDOMEN: Soft, NT, ND, BS Present. EXTREMITIES: No LE edema, pedal pulses intact equal bilaterally. Red socks on NEURO: A&OX3. Results & Data Vital Signs (Past 12 Hours) Vital Signs Temp Pulse Pulse Resp BP Pulse Ox 03/24/19 07:54 36.6 C 108 H 20 87 L 03/24/19 06:59 102 H 20 94 03/24/19 03:59 36.8 C 93 H 20 151/81 H 92 03/24/19 03:36 92 H 20 92 03/24/19 00:00 92 H 03/23/19 23:46 91 H 18 95 03/23/19 23:21 36.5 C 91 H 20 135/76 92 Laboratory Results 03/24/19 05:53 03/24/19 05:53 Diagnostic Findings XR chest 1V portable HISTORY: hypoxia COMPARISON: Chest 03/23/2019. FINDINGS: Stable elevation right hemidiaphragm. The heart remains mildly enlarged. No pneumothorax. Old, healed left-sided rib fractures. Slight improved aeration within the lungs. Chronic elevation right hemidiaphragm and small bilateral pleural effusions persist. IMPRESSION: 1. No change in the small bilateral pleural effusions. 2. Slight improved aeration within the lungs. Electronically signed by: Solitario Christopher M.D. 03/23/2019 8:49 AM PG Care Time/CCT Total # of Minutes Spent Total Time Spent with Patient: Total time spent is greater than 50% in coordination of care (as documented) at patient's floor/unit and/or counseling patient: 30
[2019-03-24] MEDS: TIOTROPIUM BROMIDE 5 PUFF/90 MCG INH INH SCH (09:12)
[2019-03-24] MEDS: FLUTICASONE/SALMETEROL 250/50 (ADVAIR) 14 PUFF/1 INHALER INH SCH ×2 (09:12→20:54)
[2019-03-24] MEDS: LOVASTATIN 20 MG TAB PO SCH (09:13)
[2019-03-24] MEDS: CHOLECALCIFEROL 1,000 UNITS 25 MCG TAB PO SCH (09:13)
[2019-03-24] MEDS: ASPIRIN 81 MG ECTAB PO SCH (09:14)
[2019-03-24] MEDS: CEROVITE ADV FORMULA TAB PO SCH (09:14)
[2019-03-24] MEDS: guaiFENesin 600 MG TABCR PO SCH ×2 (09:14→20:57)
[2019-03-24] MEDS: lisinopril 20 MG TAB PO SCH (09:14)
[2019-03-24] MEDS: METOPROLOL SUCC 50MG EXT REL TAB PO SCH (09:14)
[2019-03-24] MEDS: PANTOprazole 40 MG TAB PO SCH (09:14)
[2019-03-24] MEDS: ENOXAPARIN INJ 40 MG/0.4 ML SYR SQ SCH (09:16)
[2019-03-24] MEDS: DOCUSATE SODIUM 100 MG CAP PO SCH ×3 (09:23→20:57)
--- NOTE | 2019-03-24 09:53 | Anesthesiology Progress Note ---
Date of Service March 24, 2019 Anesthesia Post Procedure Vital Signs Vital Signs: Temp Pulse Pulse Pulse Pulse Pulse Pulse 03/24/19 08:50 115 H 117 H 118 H 117 H 03/24/19 07:54 36.6 C 108 H 03/24/19 06:59 102 H 03/24/19 03:59 36.8 C 93 H 03/24/19 03:36 92 H 03/24/19 00:00 92 H 03/23/19 23:46 91 H 03/23/19 23:21 36.5 C 91 H 03/23/19 19:38 37.1 C 90 03/23/19 19:12 89 03/23/19 16:00 36.8 C 87 03/23/19 15:25 80 03/23/19 11:26 36.5 C 86 03/23/19 10:51 79 03/23/19 10:36 03/23/19 10:35 03/23/19 10:19 03/23/19 10:01 Pulse Resp Resp Resp Resp Resp Resp 03/24/19 08:50 115 H 20 22 22 22 20 03/24/19 07:54 20 03/24/19 06:59 20 03/24/19 03:59 20 03/24/19 03:36 20 03/24/19 00:00 03/23/19 23:46 18 03/23/19 23:21 20 03/23/19 19:38 20 03/23/19 19:12 20 03/23/19 16:00 20 03/23/19 15:25 20 03/23/19 11:26 22 03/23/19 10:51 18 03/23/19 10:36 03/23/19 10:35 03/23/19 10:19 03/23/19 10:01 BP BP Pulse Ox Pulse Ox Pulse Ox Pulse Ox Pulse Ox 03/24/19 08:50 92 85 L 86 L 86 L 03/24/19 07:54 87 L 03/24/19 06:59 94 03/24/19 03:59 151/81 H 92 03/24/19 03:36 92 03/24/19 00:00 03/23/19 23:46 95 03/23/19 23:21 135/76 92 03/23/19 19:38 178/85 H 90 03/23/19 19:12 90 03/23/19 16:00 169/82 H 97 03/23/19 15:25 95 03/23/19 11:26 165/71 H 93 03/23/19 10:51 94 03/23/19 10:36 93 03/23/19 10:35 87 L 03/23/19 10:19 89 L 03/23/19 10:01 93 Pulse Ox 03/24/19 08:50 84 L 03/24/19 07:54 03/24/19 06:59 03/24/19 03:59 03/24/19 03:36 03/24/19 00:00 03/23/19 23:46 03/23/19 23:21 03/23/19 19:38 03/23/19 19:12 03/23/19 16:00 03/23/19 15:25 03/23/19 11:26 03/23/19 10:51 03/23/19 10:36 03/23/19 10:35 03/23/19 10:19 03/23/19 10:01 Notes Mental Status: alert / awake / arousable and participated in evaluation Nausea / Vomiting: adequately controlled Pain: adequately controlled Airway Patency, RR, SpO2: stable & adequate BP & HR: stable & adequate Hydration State: stable & adequate Anesthetic Complications: no major complications apparent and Pt Satisfied with anesthetic care
--- NOTE | 2019-03-24 20:12 | Hospitalist Progress Note ---
Date of Service March 24, 2019 Assessment & Plan (1) Acute respiratory failure with hypoxia: and hypercapnia Secondary to COPD exacerbation, right hemidiaphragm elevation, pulmonary nodules S/p EBUS and biopsy on 03/21 with Thoracic Surgery Previously had wheezing and a higher O2 requirement, now improving with IV steroids and bronchodilators -continue the same except Pulm converted to po prednisone x 5 day course, and reassess 2 step in the AM Will need O2 at discharge (2) Chronic obstructive pulmonary disease: With acute exacerbation -Improving as above Still requiring a lot of O2 -Continue Spiriva, albuterol nebs, Advair -converted to po prednisone Pulm following Has severe mixed restrictive and obstructive lung disease (3) Benign essential hypertension: Continue home lisinopril, metoprolol -conitnue hydralazine for SBP > 180, DBP > 110 prn (4) Multiple pulmonary nodules determined by computed tomography of lung: previously secondary to metastatic BCC of the scalp, s/p RUL wedge resection 2011 Thought to be progressing hence EBUS and biopsy 03/21 Await Path results -f/u with Thoracic Surgery (5) Hyperlipidemia: continue lovastatin (6) Chronic gastroesophageal reflux disease: Continue PPI (7) DVT prophylaxis: Lovenox Dispo-remain on PCU Subjective AMbulated this AM and was dropping ot the mid 80s for POx even on 6LNC O2. Later this evening, ambulated again and RN reports he dropped to the 70s on 4LNC but rested and recovered quickly, did not want to stop. He reports feeling much improved from previous. Minimal cough, nonproductive Afebrile Tele with ST and 1st degree AV block Review of Systems Review of Systems: All systems reviewed & are unremarkable except as noted in HPI & below (no nausea or abd pain, no chest pain, he has chornic knee pain) Physical Exam Constitutional: average body habitus; no acute distress Eyes: + anicteric sclerae Neck: trachea midline, no thyromegaly Respiratory: + tachypneic (mild, just returned from ambulating) Auscultation: + diminished lung sounds (in right lower and middle lung aranda); no crackles, no rhonchi and no wheezes Cardiovascular: RRR, no murmur, no edema Musculoskeletal: Extremities: extremities normal to inspection; no cyanosis and no clubbing Skin: no rashes, warm and dry Neurologic: moves all extremities and awake; no focal motor deficits Psychiatric: A+Ox3, euthymic affect Results & Data Vital Signs (Past 12 Hours) Vital Signs Temp Pulse Pulse Pulse Pulse Pulse Pulse 03/24/19 20:08 102 H 03/24/19 19:29 36.7 C 106 H 03/24/19 15:27 105 H 03/24/19 15:14 36.5 C 112 H 03/24/19 11:25 36.6 C 107 H 03/24/19 11:22 108 H 03/24/19 08:50 115 H 117 H 118 H 117 H 120 H Pulse Resp Resp Resp Resp Resp Resp 03/24/19 20:08 22 03/24/19 19:29 22 03/24/19 15:27 20 03/24/19 15:14 20 03/24/19 11:25 22 03/24/19 11:22 20 03/24/19 08:50 115 H 20 22 22 22 22 Resp BP Pulse Ox Pulse Ox Pulse Ox Pulse Ox Pulse Ox 03/24/19 20:08 90 03/24/19 19:29 153/60 H 88 L 03/24/19 15:27 94 03/24/19 15:14 156/76 H 91 03/24/19 11:25 139/77 89 L 03/24/19 11:22 92 03/24/19 08:50 20 92 85 L 86 L 86 L Pulse Ox Pulse Ox 03/24/19 20:08 03/24/19 19:29 03/24/19 15:27 03/24/19 15:14 03/24/19 11:25 03/24/19 11:22 03/24/19 08:50 91 84 L PG Care Time/CCT Total # of Minutes Spent Total Time Spent with Patient: Total time spent is greater than 50% in coordination of care (as documented) at patient's floor/unit and/or counseling patient: (1) Chronic obstructive pulmonary disease COPD type: chronic bronchitis Chronic bronchitis type: unspecified Qualified Code(s): J42 - Unspecified chronic bronchitis
[2019-03-24] MEDS: ACETAMINOPHEN 325 MG TAB PO PRN (20:57)
[2019-03-25] MEDS: ALBUT/IPRATROP 3MG/0.5MG NEB 3 ML VIAL NEB SCH ×4 (02:58→15:09)
[2019-03-25 06:10] LABS: Base Excess ABG 4.7 mEq/L (-9-1.8); HCO3 ABG 31 mmol/L (19-24); Oxygen Saturation ABG 93.5 % (90-95); PCO2 ABG 49 mmHg (35-46); PO2 ABG 66 mm/Hg (80-95); pH ABG 7.41 (7.35-7.45)
[2019-03-25 06:16] LABS: Allen Test Pos (Pos)
[2019-03-25 06:30] LABS: Hemoglobin 14.6 g/dL (14.0-18.0); Mean Corpuscular Hemoglobin 33.6 pg (25-34); Mean Corpuscular Hgb Conc 32.4 g/dL (32-36); Mean Corpuscular Volume 103.4 fL (80-100); Mean Platelet Volume 10.9 fL (7.4-10.4); Platelet Count 296 K/uL (130-400); RDW Coefficient of Variation 13.4 % (11.5-14.5); RDW Standard Deviation 50.3 fL (36.4-46.3); Red Blood Count 4.35 M/uL (4.7-6.1); White Blood Count 24.46 K/uL (4.8-10.8)
[2019-03-25 06:34] LABS: Basophils # (auto) 0.01 K/uL (0-0.2); Eosinophils # (auto) 0.01 K/uL (0-0.5); Immature Granulocytes # (auto) 0.07 K/uL (0.00-0.02); Immature Granulocytes % (auto) 0.3 %; Lymphocytes # (auto) 1.98 K/uL (1.2-3.4); Lymphocytes % (auto) 8.1 %; Monocytes # (auto) 1.99 K/uL (0.11-0.59); Monocytes % (auto) 8.1 %; Neutrophils % (auto) 83.5 %; RBC Morphology Unremarkable
[2019-03-25 06:54] LABS: Albumin Level 3.4 gm/dl (3.4-5.0); BUN Creatinine Ratio 21.2 (10-20); Bilirubin Direct 0.3 mg/dl (0-0.2); Calcium 9.5 mg/dl (8.5-10.1); Creatinine Clr Calc Pharmacy 60.9 ml/min; Est GFR (African American) 79.2; Est GFR (Non-African American) 68.3; Potassium 3.6 mmol/L (3.5-5.1)
[2019-03-25 06:56] LABS: Bilirubin,Total 0.9 mg/dl (0.2-1); Total Protein 7.4 gm/dl (6.4-8.2)
[2019-03-25] MEDS ORDERED: predniSONE 20 MG TAB PO SCH (09:00)
[2019-03-25] MEDS ORDERED: predniSONE 50 MG TAB PO SCH (09:00)
[2019-03-25] MEDS: FLUTICASONE/SALMETEROL 250/50 (ADVAIR) 14 PUFF/1 INHALER INH SCH (09:46)
[2019-03-25] MEDS: TIOTROPIUM BROMIDE 5 PUFF/90 MCG INH INH SCH (09:46)
[2019-03-25] MEDS: guaiFENesin 600 MG TABCR PO SCH (09:46)
[2019-03-25] MEDS: ENOXAPARIN INJ 40 MG/0.4 ML SYR SQ SCH (09:47)
[2019-03-25] MEDS: CEROVITE ADV FORMULA TAB PO SCH (09:47)
[2019-03-25] MEDS: CHOLECALCIFEROL 1,000 UNITS 25 MCG TAB PO SCH (09:47)
[2019-03-25] MEDS: PANTOprazole 40 MG TAB PO SCH (09:48)
[2019-03-25] MEDS: LOVASTATIN 20 MG TAB PO SCH (09:48)
[2019-03-25] MEDS: METOPROLOL SUCC 50MG EXT REL TAB PO SCH (09:48)
[2019-03-25] MEDS: lisinopril 20 MG TAB PO SCH (09:48)
[2019-03-25] MEDS: ASPIRIN 81 MG ECTAB PO SCH (09:48)
[2019-03-25] MEDS: DOCUSATE SODIUM 100 MG CAP PO SCH (09:50)
--- NOTE | 2019-03-25 11:51 | Pulmonology Progress Note ---
Date of Service March 25, 2019 Assessment & Plan (1) Multiple pulmonary nodules determined by computed tomography of lung: Biopsy results indicate that he has metastatic basal cell carcinoma in the left lower lobe. Will defer management to oncology. He does continue to require oxygen and has likely chronic hypoxemic and hypercapnic respiratory failure. He will need continued supplemental oxygen as an outpatient and this is medically necessary. I also do think that he would benefit from a noninvasive mode of ventilation such as a trilogy ventilator. He does have hypercapnic respiratory failure based on the blood gas from this morning and appears to be chronic in nature. A noninvasive ventilator would hopefully reduce his carbon dioxide levels and decrease the frequency of exacerbations requiring admissions to the hospital. Recommend finishing out a course of 5 days of antibiotics for a COPD exacerbation. As noted previously he does have an obstructive and restrictive physiology on his PFTs likely related to his COPD and right roro-diaphragmatic elevation/pleural plaques seen on his CT of his chest. (2) Hypoxemia: (3) Abnormal CT scan of lung: (4) Chronic obstructive pulmonary disease: COPD type: chronic bronchitis Chronic bronchitis type: unspecified Qualified Code(s): J42 - Unspecified chronic bronchitis Subjective Patient feels better today. He is ambulating around the room. Shortness of breath has improved. No chest pain. Minimal cough. No nausea. Review of Systems Review of Systems: Unchanged from prior Physical Exam Constitutional: WD/WN, vitals as above well developed and + well hydrated; no acute distress and not intoxicated appearing Eyes: PERRL, conjunctivae normal, anicteric sclerae normal visual aranda by confrontation, PERRL, EOM intact bilaterally and reactive pupils ENMT: external ear and nose normal, oropharynx normal Neck: trachea midline, no thyromegaly normal visual inspection Thyroid: normal thyroid Respiratory: normal respiratory effort, lungs clear to auscultation normal respiratory effort, able to speak in complete sentences and symmetric chest movement Auscultation: lungs clear to auscultation bilaterally Cardiovascular: Rate/Rhythm: regular rate and regular rhythm Vessels: normal peripheral pulses; no JVD Extremities: normal capillary refill Chest (Breasts): Breast: normal inspection of breasts; no breast tenderness Gastrointestinal (Abdomen): normal bowel sounds, soft, nontender, no hepatosplenomegaly Inspection/Auscultation: abdomen normal to inspection and normal bowel sounds; abdomen not distended, no abdominal edema and no visible pulsation Percussion/Palpation: abdomen soft and normal to percussion; abdomen nontender, no guarding, abdomen not rigid and no pulsatile mass Musculoskeletal: no cyanosis or clubbing, extremities motor strength 5/5 Head/Neck/Chest: normocephalic and neck supple; normal palpation of chest wall Extremities: extremities normal to inspection and strength 5/5 throughout Gait: normal gait Skin: no rashes, warm and dry normal turgor Neurologic: patellar DTR's 2+ bilat, sensation intact and PERRL, EOMI, accommodation nl, no face palsy, no dysarthria normal touch/pain/proprioception, moves all extremities and awake Psychiatric: A+Ox3, euthymic affect Eye Contact: good eye contact Speech: normal rate/rhythm/volume of speech Thought Process: clear/coherent thought process Results & Data Vital Signs (Past 12 Hours) Vital Signs Temp Pulse Pulse Pulse Pulse Pulse Pulse 03/25/19 11:23 98.4 F 89 03/25/19 11:16 86 100 H 122 H 101 H 03/25/19 10:50 102 H 03/25/19 07:15 97.5 F L 95 H 03/25/19 06:52 80 03/25/19 03:32 97.5 F L 97 H 03/25/19 02:59 95 H 03/25/19 00:00 100 H Pulse Pulse Resp Resp Resp Resp Resp 03/25/19 11:23 22 03/25/19 11:16 122 H 86 18 22 24 22 03/25/19 10:50 18 03/25/19 07:15 22 03/25/19 06:52 16 03/25/19 03:32 19 03/25/19 02:59 18 03/25/19 00:00 Resp Resp BP Pulse Ox Pulse Ox Pulse Ox Pulse Ox 03/25/19 11:23 133/74 93 03/25/19 11:16 18 18 92 85 L 90 03/25/19 10:50 90 03/25/19 07:15 151/74 H 91 03/25/19 06:52 94 03/25/19 03:32 118/68 93 03/25/19 02:59 93 03/25/19 00:00 Pulse Ox Pulse Ox Pulse Ox 03/25/19 11:23 03/25/19 11:16 83 L 90 86 L 03/25/19 10:50 03/25/19 07:15 03/25/19 06:52 03/25/19 03:32 03/25/19 02:59 03/25/19 00:00 I personally reviewed pertinent labs, pathology and imaging. PG Care Time/CCT Total # of Minutes Spent Total Time Spent with Patient: Total time spent is greater than 50% in coordination of care (as documented) at patient's floor/unit and/or counseling patient:
--- NOTE | 2019-03-25 16:40 | Discharge Summary ---
Date of Service March 25, 2019 Admission HPI Per Admitting Provider Mr. Braden underwent a navigational bronchoscopy and an endobronchial ultrasound today. I am not sure what his diagnosis is. He has a history of metastatic basal cell carcinoma to his lungs and underwent a resection, but this was many years ago. Dr. Flavio Lugo from medical oncology asked that a tissue diagnosis be made to see if indeed the masses that we see in his lung are basal cell carcinomas. This is important because it will determine his treatment if any. The patient underwent uncomplicated procedure today; however, after the surgery, he is struggling a bit. He is having a difficult time keeping his saturations up. He has very little support at home. I am going to keep him in the hospital overnight. He should be better by tomorrow when the anesthesia wears off, we can get his saturations up on room air. He did not require oxygen prior to coming in. We will admit him to med/surg and I will discharge him in the morning. Principal Diagnosis Acute respiratory failure with hypoxia and hypercarbia COPD Exacerbation, acute Metastatic basal cell carcinoma to the lungs Discharge Exam Constitutional average body habitus; no acute distress Eyes + anicteric sclerae Neck trachea midline, no thyromegaly Respiratory no labored breathing Auscultation: + diminished lung sounds (in right lower and middle lung aranda); no crackles, no rhonchi and no wheezes Cardiovascular RRR, no murmur, no edema Gastrointestinal (Abdomen) normal bowel sounds, soft, nontender, no hepatosplenomegaly Inspection/Auscultation: + abdomen abnormal to inspection (large ventral hernia right side, reducible) Musculoskeletal Extremities: extremities normal to inspection; no cyanosis and no clubbing Skin no rashes, warm and dry Neurologic moves all extremities and awake; no focal motor deficits Psychiatric A+Ox3, euthymic affect Discharge Data Allergies Allergy/AdvReac Type Severity Reaction Status Date / Time No Known Allergies Allergy Verified 04/02/19 13:07 Consultations 03/21/19 16:06 Consult Hospitalist Routine 03/22/19 09:42 Consult Pulmonology Routine 03/24/19 08:37 Consult Case Management - Discharge Planning Routine 03/25/19 16:10 Consult Case Management - Discharge Planning Routine Procedures Performed Operation Date: 03/21/19 10:35 Actual Procedures p Endobronchial Ultrasound(Not Applicable) - Parveen Schmidt MD, FACS s and Navigational Bronchoscopy with Biopsies(Not Applicable) - Parveen Schmidt MD, FACS Ordered Studies 03/21/19 10:35 FL chest 1V frontal Routine FL fluoroscopy <1hr Routine CXR Hospital Course (1) Acute respiratory failure with hypoxia: and hypercapnia Secondary to COPD exacerbation, right hemidiaphragm elevation, pulmonary nodules/metastatic basal cell CA to the lungs S/p EBUS and biopsy on 03/21 with Thoracic Surgery Previously had wheezing and a higher O2 requirement, now improving with IV steroids and bronchodilators -continue the same except Pulm converted to po prednisone x 5 day course -2 step walk test reveals need for O2 at discharge With abg showing hypercarbia as well Due to chronic respiratory failure subsequent to COPD, patient now requires a Non-invasive Home Ventilator. Bi-level therapy with and without a rate would be ineffective as patient requires a volume targeted mode. Ventilation is required to decrease the work of breathing and improve pulmonary status. Interruption of ventilator support would lead to decline of health status. 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 (3) Benign essential hypertension: Continue home lisinopril, metoprolol (4) Multiple pulmonary nodules determined by computed tomography of lung: Again confirmed to be secondary to metastatic BCC of the scalp, s/p RUL wedge resection 2012 Thought to be progressing hence EBUS and biopsy 03/21 -f/u with Thoracic Surgery after case reviewed at Tumor Board (5) Hyperlipidemia: continue lovastatin (6) Chronic gastroesophageal reflux disease: Continue PPI (7) DVT prophylaxis: Lovenox Dispo-stable for dc to home Total Time Total Time Spent Total Time Spent (In Minutes): >30 min Total Time Includes: Examination of the Patient, Discharge Planning, Medication Reconciliation and Communication With Other Providers (Thoracic Surgery) Discharge Plan Discharge Items Patient Disposition: Home - Home Health Services Reason For Visit: HYPOXIA Discharge Diagnosis: Mediastinal Adenopathy Lung Nodules Hypoxia Condition on Discharge: Fair Activity: Resume your previous activity Lifting: None Bathing: No limitations Driving/Machine Use: When cleared by Dr. Schmidt Non-emergency contact: Primary Care Provider, Surgeon and Recoverer Call non-emergency contact if: you have any medication questions, your symptoms worsen, you have a fever and your temperature is above 101 Follow-up/Referrals: James Serrato III, CRNP [Primary Care Provider] - 03/31/19 9:15 am (Please, follow up at [facility] Serrato's office with his associate, Cherelle GREENFIELD, on SundayMarch 31 at 9:15 am. *If you need to change this appointment, call their office at [phone].) Parveen Schmidt MD, FACS [Surgeon] - (Keep your scheduled appointment with Dr. Schmidt on March 27, 2019 @ 11:15 am.) Benito Castañeda MD [Physician] - 04/02/19 11:00 am (Please, follow up at [facility] Pulmonology Office with Dr. Castañeda on SundayApril 02 at 11:00 am. *The office is located in [address] of [facility]. This is the big building located next to this [facility]. If you need to change this appointment, call the office at [phone].) Diet: Heart Healthy Addtl Attending Provider Instructions: Call office with questions Please finish out a course of prednisone as prescribed. You should be using oxygen 2L via the nasal cannula at rest and turn it up to 6L with any exertion or ambulation. Please follow up with your PCP, Pulmonology, and Thoracic Surgery as scheduled for you. Pending Studies at Discharge: No Stand-Alone Forms: My [facility] Medications and DC Order Prescriptions: Continued omeprazole 20 mg capsule,delayed release(DR/EC) 20 mg PO QAM Qty: 90 RF: 0 metoprolol succinate 100 mg tablet extended release 24 hr 100 mg PO QAM RF: 0 lisinopril 20 mg tablet 20 mg PO QAM RF: 0 aspirin [Adult Low Dose Aspirin] 81 mg tablet,delayed release (DR/EC) 81 mg PO QAM RF: 0 Aerochamber MV spacer .ROUTE .MEDSUPPLY Qty: 1 RF: 0 Complete Multivitamin tablet 1 tab PO QAM RF: 0 cholecalciferol (vitamin D3) 5,000 unit capsule 5,000 units PO DAILY RF: 0 lovastatin 20 mg tablet 20 mg PO QAM RF: 0 albuterol sulfate [Ventolin HFA] 90 mcg/actuation Hfa Aerosol Inhaler 2 puff INHALATION QID PRN (Reason: sob) RF: 0 No Action Stiolto Respimat 2.5-2.5 mcg/actuation mist 2 puffs INH DAILY Qty: 4 RF: 5 Oxygen Home Liters Per Minute .ROUTE .MEDSUPPLY Qty: 3 RF: 0 Discharge Orders: Discharge Order (Routine); Ordered 03/25/19 Ordered By: Yen Echols Admission Data Admit Date/Time: 03/24/19 09:09 Attending Provider: Yen Echols Admit Provider: Parveen Schmidt Primary Care Provider: James Serrato III Other Providers: Benito Castañeda Other Interventions: Discharge Summary Assessment (RN) Last Done: 03/25/19 16:29 DC Date/Time DO NOT enter until pt leaves facility: 03/25/19 17:07
== END 2019-03-25 17:07 | disposition home health service (06) | DRG 166 ==
LOC: 3N 09:09 → ASU 09:09 → 2S 03-23 01:14 → SUATTDRO 03-24 09:09